=== PATIENT | female | born 1995 | race Two or more races ===

== ENCOUNTER 2019-12-21 14:02 | Emergency (ER) | payer OTHER ==
[2019-12-21 14:10] VITALS: BMI 22.3
[2019-12-21] MEDS ORDERED: KETOROLAC TROMETHAMINE 30 MG/1 ML VIAL IM ONE (14:32)
[2019-12-21] MEDS ORDERED: KETOROLAC TROMETHAMINE 30 MG/1 ML VIAL ONE (14:41)
--- NOTE | 2019-12-21 14:48 | PDOC ---
History of Present Illness - General Chief Complaint: Pain, Acute Stated Complaint: LWR ABD PAIN Time Seen by Provider: 12/21/19 14:25 History Source: Patient Exam Limitations: Clinical Condition - History of Present Illness Initial Comments: 12/21/19 14:44 Patient with no significant past medical history present with complaint of cramping lower abdominal pain since start of her menstrual period this morning. Patient reported having nausea but denies vomiting. Denies diarrhea, constipation, fever or chills. Patient did not take anything for symptoms. Patient reported 8 out of 10 cramping lower abdominal pain. Denies urinary frequency, dysuria or burning with urination. Denies any other symptoms Is this a multiple visit Asthma Patient?: No Timing/Duration: constant Past History - Past Medical History Allergies/Adverse Reactions: Allergies Allergy/AdvReac Type Severity Reaction Status Date / Time No Known Allergies Allergy Verified 12/21/19 14:10 Home Medications: Ambulatory Orders Acetaminophen/Pyrilamine/Caff [Midol Caplet] 1 each PO Q8H PRN #20 tablet Famotidine 1 tab PO DAILY 12/21/19 Meloxicam 1 tab PO ASDIR 12/21/19 COPD: No - Immunization History Immunization Up to Date: No - Psycho Social/Smoking Cessation Hx Smoking History: Never smoked Have you smoked in the past 12 months: No Information on smoking cessation initiated: No Hx Alcohol Use: No Drug/Substance Use Hx: No Review of Systems - Review of Systems Able to Perform ROS?: Yes Is the patient limited Icelandic proficient: No Constitutional: No: Chills, Fever, Malaise HEENTM: No: Symptoms Reported, See HPI, Eye Pain, Blurred Vision, Tearing, Recent change in vision, Double Vision, Cataracts, Ear Pain, Ocular Prothesis, Ear Discharge, Nose Pain, Nose Congestion, Tinnitus, Nose Bleeding, Hearing Loss , Throat Pain, Throat Swelling, Mouth Pain, Dental Problems, Difficulty Swallowing, Mouth Swelling, Other Respiratory: No: Symptoms reported, See HPI, Cough, Orthopnea, Shortness of Breath, SOB with Exertion, SOB at Rest, Stridor, Wheezing, Productive cough, Hemoptysis, Other Cardiac (ROS): No: Symptoms Reported, See HPI, Chest Pain, Edema, Irregular Heart Rate, Lightheadedness, Palpitations, Syncope, Chest Tightness, Other ABD/GI: Yes: Symptoms Reported, See HPI, Nausea, Abdominal cramping (lower abdomen pain). No: Abdominal Distended, Abd. Pain w/ defecation, Blood Streaked Bowels, Constipated, Diarrhea, Difficulty Swallowing, Poor Appetite, Poor Fluid Intake, Rectal Bleeding, Vomiting, Indigestion : Yes: Symptoms Reported, See HPI, Other (menstrual bleeding). No: Burning, Discharge, Frequency, Urgency All Other Systems: Reviewed and Negative *Physical Exam - Vital Signs Last Vital Signs Temp Pulse Resp BP Pulse Ox 98.3 F 67 18 117/76 100 12/21/19 14:07 12/21/19 14:07 12/21/19 14:07 12/21/19 14:07 12/21/19 14:07 - Physical Exam 12/21/19 14:47 GENERAL: Well developed, well nourished. Awake and alert in mild acute distress. HEENT: Normocephalic, atraumatic. PERRLA, EOMI. No conjunctival pallor. Sclera are non-icteric. Moist mucous membranes. Oropharynx is clear. NECK: Supple. Full ROM. CARDIOVASCULAR: Regular rate and rhythm. No murmurs, rubs, or gallops. Distal pulses are 2+ and symmetric. PULMONARY: No evidence of respiratory distress. Lungs clear to auscultation bilaterally. No wheezing, rales or rhonchi. ABDOMINAL: Soft. Mild tenderness to suprapubic region. Non-distended. No rebound or guarding. No organomegaly. Normoactive bowel sounds. MUSCULOSKELETAL Normal range of motion at all joints. SKIN: Warm and dry. Normal capillary refill. No rashes. No jaundice. NEUROLOGICAL: Alert, awake, appropriate. Gait is normal without ataxia. PSYCHIATRIC: Cooperative. Good eye contact. Appropriate mood General Appearance: Yes: Nourished, Appropriately Dressed, Mild Distress ED Treatment Course - LABORATORY CBC & Chemistry Diagram: 12/21/19 14:30 12/21/19 14:30 Medical Decision Making - Medical Decision Making 12/21/19 14:45 Patient with no significant past medical history present with complaint of cramping lower abdominal pain since start of her menstrual period this morning. Patient reported having nausea but denies vomiting. Denies diarrhea, constipation, fever or chills. Patient did not take anything for symptoms. Patient reported 8 out of 10 cramping lower abdominal pain. Denies urinary frequency, dysuria or burning with urination. Denies any other symptoms Exam significant for mild tenderness to suprapubic region without guarding or rebound otherwise normal exam. Symptoms likely menstrual cramps. CBC and chemistry lab ordered to rule out other etiology of symptoms. UA, urine hCG urine culture lab ordered. Toradol 30 mg IM ordered for pain. Treat based on lab results 12/21/19 15:42 CBC and chemistry lab unremarkable. Urine hCG negative. UA with no abdominal findings. Patient symptoms likely menstrual pain and will discharge home on Midol as needed for menstrual pain with [employer] follow-up. Patient report complete improvement of abdominal pain Discharge - Discharge Information Problems reviewed: Yes Clinical Impression/Diagnosis: Menstrual cramps Condition: Improved Disposition: HOME - Admission No - Additional Discharge Information Prescriptions: Acetaminophen/Pyrilamine/Caff [Midol Caplet] 1 each PO Q8H PRN #20 tablet PRN Reason: menstrual cramps - Follow up/Referral - Patient Discharge Instructions Patient Printed Discharge Instructions: DI for Dysmenorrhea Additional Instructions: Your blood work is normal. Your symptoms likely caused by menstrual pain. Take prescribed medication as needed for abdominal pain. Follow-up with your OB /[employer] Print Language: ALBANIAN - Post Discharge Activity
[2019-12-21 14:54] LABS: BASO % 0.4 % (0-2.0); EOS % 1.4 % (0-4.5); HEMATOCRIT 37.6 % (32.4-45.2); HEMOGLOBIN 12.6 GM/dL (10.7-15.3); LYMPH % 30.5 % (8-40); MCH 30.6 pg (25.7-33.7); MCHC 33.6 g/dl (32.0-36.0); MEAN CELL VOLUME 91.1 fl (80-96); MEAN PLT VOLUME 7.6 fl (7.5-11.1); NEUT % 59.7 % (42.8-82.8); PLATELET COUNT 321 K/MM3 (134-434); RBC 4.13 M/mm3 (3.60-5.2); RDW 13.2 % (11.6-15.6); WHITE BLOOD COUNT 5.4 K/mm3 (4.0-10.0)
[2019-12-21 15:15] LABS: ALBUMIN 3.7 g/dl (3.4-5.0); BILIRUBIN,TOTAL 0.3 mg/dL (0.2-1); BLOOD UREA NITROGEN 12.4 mg/dL (7-18); CALCIUM 8.8 mg/dL (8.5-10.1); CREATININE 0.7 mg/dL (0.55-1.3); POTASSIUM 3.6 mmol/L (3.5-5.1); TOT PROT 6.8 g/dl (6.4-8.2)
[2019-12-21 15:44] LABS: URINE APPEARANCE Clear; URINE BILIRUBIN Negative (NEGATIVE); URINE COLOR Yellow; URINE GLUCOSE (UA) Negative (NEGATIVE); URINE KETONE Negative (NEGATIVE); URINE LEUK ESTERASE Negative (NEGATIVE); URINE NITRITE Negative (NEGATIVE); URINE PROTEIN Trace (NEGATIVE); URINE UROBILINOGEN 0.2 mg/dL (0.2-1.0)
[2019-12-21 15:57] VITALS: BP 110/68; PULSE 88; TEMP 98.5
[2019-12-21 16:23] LABS: EPI CELLS FEW /HPF (0-5/HPF); URINE BACTERIA FEW /hpf (NEGATIVE); URINE RBC 0-2 /hpf (0-4); URINE WBC 0-2 /hpf (0-5)
== END 2019-12-21 15:58 | disposition home or self-care (01) ==
LOC: JER 14:02
PROC: 3E0233Z Introduction of Anti-inflammatory into Muscle, Percutaneous Approach (ICD-10-PCS; principal; 2019-12-21)
DX: N94.6 Dysmenorrhea, unspecified (principal)
CPT/HCPCS: 36415; 80053; 81003; 84703; 85025; 87086; 96372; 99282-25

== ENCOUNTER 2022-04-21 19:27 | Emergency (ER) | payer OTHER ==
[2022-04-21 19:33] VITALS: BP 110/69; PULSE 89; TEMP 97.8; BMI 33.5
[2022-04-21] MEDS ORDERED: ACETAMINOPHEN 500 MG TABLET (FP) PO ONE (20:29)
[2022-04-21] MEDS ORDERED: ACETAMINOPHEN 325 MG TABLET (FP) ONE (20:42)
[2022-04-21 21:39] LABS: EPI CELLS >36 /uL (0-25.1); HYALINE CASTS 1 /uL (0-3.1); PH,URINE 6.5 (5.0-8.0); URINE APPEARANCE CLEAR; URINE BACTERIA 1144 /uL (0-1359); URINE BILIRUBIN NEGATIVE (NEGATIVE); URINE COLOR YELLOW; URINE GLUCOSE (UA) NEGATIVE (NEGATIVE); URINE KETONE NEGATIVE (NEGATIVE); URINE LEUK ESTERASE 1+ (NEGATIVE); URINE NITRITE NEGATIVE (NEGATIVE); URINE PROTEIN NEGATIVE (NEGATIVE); URINE RBC 1 /uL (0-23.9); URINE UROBILINOGEN 0.2 mg/dL (0.2-1.0); URINE WBC 57 /uL (0-25.8)
[2022-04-21 21:41] LABS: BASO % 0.2 % (0-2.0); HEMATOCRIT 28.7 % (32.4-45.2); HEMOGLOBIN 9.8 GM/dL (10.7-15.3); LYMPH % 27.3 % (8-40); MCH 30.5 pg (25.7-33.7); MCHC 34.1 g/dl (32.0-36.0); MEAN CELL VOLUME 89.4 fl (80-96); NEUT % 63.5 % (42.8-82.8); PLATELET COUNT 338 10^3/uL (134-434); RBC 3.21 M/mm3 (3.60-5.2); RDW 14.2 % (11.6-15.6); WHITE BLOOD COUNT 8.2 K/mm3 (4.0-10.0)
[2022-04-21 21:52] LABS: CALCIUM 9.1 mg/dL (8.5-10.1)
[2022-04-21 21:53] LABS: ALBUMIN 2.8 g/dl (3.4-5.0); BLOOD UREA NITROGEN 7.3 mg/dL (7-18)
[2022-04-21 21:56] LABS: CREATININE 0.4 mg/dL (0.55-1.3)
[2022-04-21 21:57] LABS: BILIRUBIN,TOTAL 0.2 mg/dL (0.2-1)
[2022-04-21] MEDS ORDERED: CEPHALEXIN MONOHYDRATE 500 MG CAPSULE (UD) PO ONE (22:22)
[2022-04-21] MEDS ORDERED: CEPHALEXIN MONOHYDRATE 500 MG CAPSULE (UD) ONE (22:58)
== END 2022-04-22 02:17 | disposition home or self-care (01) ==
LOC: JER 19:27
PROC: 3E0233Z Introduction of Anti-inflammatory into Muscle, Percutaneous Approach (ICD-10-PCS; principal; 2022-04-21)
DX: O98.812 Other maternal infectious and parasitic diseases complicating pregnancy, second trimester (principal); O26.892 Other specified pregnancy related conditions, second trimester; R10.9 Unspecified abdominal pain; Z3A.19 19 weeks gestation of pregnancy
CPT/HCPCS: 36415; 76817-TC; 80053; 81003; 83690; 84702; 85025; 87086; 99284-25

== ENCOUNTER 2022-08-19 07:00 | Inpatient (IN) | payer OTHER ==
[2022-08-19] MEDS ORDERED: PHENYLEPHRINE HCL 10 MG/1 ML SINGLE DOSE VIAL ONE ×2 (08:04)
[2022-08-19] MEDS ORDERED: morphine SULFATE/PF 1 MG/2 ML (2cc Syringe - QUVA) ONE (08:04)
[2022-08-19] MEDS ORDERED: ONDANSETRON 4 MG/2 ML VIAL ONE (08:06)
[2022-08-19] MEDS ORDERED: ceFAZolin SODIUM 1 GM VIAL ONE (08:06)
[2022-08-19] MEDS ORDERED: DEXTROSE 5%-LACTATED RINGERS 1,000 ML IV SCH (08:15)
[2022-08-19 08:21] VITALS: BMI 37.2
[2022-08-19] MEDS ORDERED: BUPIVACAINE HCL/PF 0.5% (5MG/ML) 10 ML VIAL ONE (08:37)
[2022-08-19] MEDS ORDERED: OXYTOCIN 10 UNITS/ML VIAL ONE ×3 (09:12→09:45)
[2022-08-19 10:11] LABS: CORD BASE EXCESS -3.9 mmol/L (0-2); CORD HCO3 22.5 mmHg (20-29); CORD PCO2 46.2 mmHg (30-78); CORD pH 7.306 (7.14-7.44)
[2022-08-19 10:13] LABS: CORD BASE EXCESS -4.1 mmol/L (0-2); CORD HCO3 23.3 mmHg (20-29); CORD PCO2 51.7 mmHg (30-78); CORD pH 7.272 (7.14-7.44)
[2022-08-19 10:18] LABS: CORD HCO3 22.1 mmHg (20-29); CORD PCO2 59.8 mmHg (30-78); CORD pH 7.186 (7.14-7.44)
[2022-08-19] MEDS ORDERED: CITRIC ACID/SODIUM CITRATE 30 ML UNIT-DOSE CUP PO ONE (10:18)
[2022-08-19] MEDS ORDERED: ACETAMINOPHEN 325 MG TABLET (FP) PO PRN (10:19)
[2022-08-19] MEDS ORDERED: IRON SUCROSE INJECTION 300 MG in SODIUM CHLORIDE 250 ML IVPB ONE (10:21)
[2022-08-19 10:23] LABS: CORD HCO3 23.6 mmHg (20-29); CORD PCO2 68.6 mmHg (30-78); CORD pH 7.154 (7.14-7.44)
[2022-08-19] MEDS: OXYTOCIN 20 UNITS in 0.9% NS 20 UNIT/1,000 ML INFUS.BAG IV SCH ×2 (10:25→19:24)
[2022-08-19] MEDS ORDERED: ACETAMINOPHEN INJECTION 100 ML IVPB ONE (11:36)
[2022-08-19] MEDS: ACETAMINOPHEN 1000 MG/100 ML BAG IVPB SCH ×3 (11:38→23:28)
[2022-08-19] MEDS ORDERED: ONDANSETRON 4 MG/2 ML VIAL IVPUSH PRN (11:53)
[2022-08-19] MEDS ORDERED: morphine SULFATE/PF 1 MG/2 ML (2cc Syringe - QUVA) EP ONE (11:53)
[2022-08-20] MEDS: ACETAMINOPHEN 1000 MG/100 ML BAG IVPB SCH (05:25)
[2022-08-20 08:41] LABS: BASO % 0.2 % (0-2.0); EOS % 0.7 % (0-4.5); HEMATOCRIT 28.4 % (32.4-45.2); HEMOGLOBIN 9.6 GM/dL (10.7-15.3); LYMPH % 16.1 % (8-40); MCH 28.3 pg (25.7-33.7); MCHC 33.9 g/dl (32.0-36.0); MEAN CELL VOLUME 83.3 fl (80-96); MEAN PLT VOLUME 7.4 fl (7.5-11.1); PLATELET COUNT 332 10^3/uL (134-434); RBC 3.41 M/mm3 (3.60-5.2); RDW 13.9 % (11.6-15.6); WHITE BLOOD COUNT 6.9 K/mm3 (4.0-10.0)
[2022-08-20] MEDS: SIMETHICONE 80 MG TAB.CHEW (FP) PO PRN ×3 (08:46→21:11)
[2022-08-20] MEDS: IBUPROFEN 600 MG TABLET (FP) PO PRN ×2 (08:46→16:46)
[2022-08-20] MEDS: FERROUS SO4 325 MG TABLET (FP) PO SCH ×2 (09:50→21:11)
[2022-08-20] MEDS: oxyCODONE HCL 5 MG TABLET PO PRN ×3 (10:30→21:10)
[2022-08-21] MEDS: SIMETHICONE 80 MG TAB.CHEW (FP) PO PRN ×2 (06:41→11:32)
[2022-08-21] MEDS: oxyCODONE HCL 5 MG TABLET PO PRN ×3 (06:41→18:06)
[2022-08-21] MEDS: IBUPROFEN 600 MG TABLET (FP) PO SCH ×3 (08:35→21:12)
[2022-08-21] MEDS: FERROUS SO4 325 MG TABLET (FP) PO SCH ×2 (09:28→21:12)
[2022-08-22] MEDS: IBUPROFEN 600 MG TABLET (FP) PO SCH ×4 (02:09→20:38)
[2022-08-22 07:55] LABS: BASO % 0.1 % (0-2.0); EOS % 2.3 % (0-4.5); HEMATOCRIT 25.2 % (32.4-45.2); HEMOGLOBIN 8.5 GM/dL (10.7-15.3); LYMPH % 23.3 % (8-40); MCH 28.6 pg (25.7-33.7); MCHC 33.9 g/dl (32.0-36.0); MEAN CELL VOLUME 84.3 fl (80-96); MEAN PLT VOLUME 6.9 fl (7.5-11.1); MONO % 8.1 % (3.8-10.2); NEUT % 66.2 % (42.8-82.8); PLATELET COUNT 399 10^3/uL (134-434); RBC 2.98 M/mm3 (3.60-5.2); RDW 14.1 % (11.6-15.6)
[2022-08-22] MEDS: SIMETHICONE 80 MG TAB.CHEW (FP) PO PRN (08:13)
[2022-08-22] MEDS: FERROUS SO4 325 MG TABLET (FP) PO SCH ×2 (09:31→22:00)
[2022-08-22] MEDS: OXYTOCIN 20 UNITS in 0.9% NS 20 UNIT/1,000 ML INFUS.BAG IV SCH (20:25)
[2022-08-22 21:48] VITALS: RESP 18
[2022-08-23] MEDS: IBUPROFEN 600 MG TABLET (FP) PO SCH ×3 (02:54→14:32)
[2022-08-23 07:50] VITALS: BP 130/73; PULSE 65; TEMP 98.8
[2022-08-23] MEDS: FERROUS SO4 325 MG TABLET (FP) PO SCH (10:44)
== END 2022-08-23 19:50 | disposition home or self-care (01) | DRG 540 ==
LOC: JLDR 07:00 → J3W 12:30
PROVIDERS: ADMIT Obstetrics & Gynecology Maternal & Fetal Medicine; ATTEND Obstetrics & Gynecology Maternal & Fetal Medicine
PROC: 10D00Z1 Extraction of Products of Conception, Low, Open Approach (ICD-10-PCS; principal; 2022-08-19)
DX: O32.1XX1 Maternal care for breech presentation, fetus 1 (principal); O34.219 Maternal care for unspecified type scar from previous cesarean delivery; O30.043 Twin pregnancy, dichorionic/diamniotic, third trimester; Z3A.37 37 weeks gestation of pregnancy; Z37.2 Twins, both liveborn; O99.214 Obesity complicating childbirth; O99.02 Anemia complicating childbirth
CPT/HCPCS: 36415; 36600; 80053; 82803; 85025; 85610; 86850; 86900; 86901; 88307-TC; C9803-CS; J1756; U0003; U0005